=== PATIENT | female | born 1955 | race Caucasian/White ===

== ENCOUNTER 2017-04-06 05:19 | Observation (INO) | payer BC ==
[~2017-04-06] VITALS: Ht 172.7 cm; Wt 114.7 kg
[2017-04-06] VITALS (7 sets, daily range): BP systolic 112–149; BP diastolic 68–83; PULSE 60–67; TEMP 36.6–37.1; O2SAT 93–98; Ht 172.7 cm; Wt 114.7 kg
[~2017-04-06 05:19] MED LIST: ASPI-435 PO; LEVO75TA5 PO; MULT-884 PO
[2017-04-06] MEDS ORDERED: SODIUM CHLORIDE 0.9% 1000ML 1,000 ML IV ONE (06:00)
[2017-04-06] MEDS ORDERED: NITROGLYCERIN OINT 2% 1GM PACKET EXT ONE (06:00)
[2017-04-06 06:13] LABS: POINT OF CARE TROPONIN I < 0.030 ng/ml (0-0.045)
[2017-04-06 06:18] LABS: BASO % 0.5 %; BASO ABS # 0.04 K/uL (0-0.2); COMPLETE YES; EOS % 1.7 %; HEMATOCRIT 39.8 % (37-47); IG% 0.2 %; LYMPH % 19.2 %; LYMPH ABS # 1.69 K/uL (1.2-3.4); MEAN CORPUSCULAR HEMOGLOBIN 30.5 pg (25-34); MEAN CORPUSCULAR HGB CONC 33.9 g/dl (32-36); MEAN PLATELET VOLUME 10.9 fL (7.4-10.4); MONO % 7.1 %; NEUT % 71.3 %; PLATELET COUNT 218 K/uL (130-400); RED BLOOD COUNT 4.42 M/uL (4.2-5.4); WHITE BLOOD COUNT 8.78 K/uL (4.8-10.8)
[2017-04-06] MEDS ORDERED: LEVO150T PO (06:18)
[2017-04-06 06:31] LABS: CALCIUM 8.7 mg/dl (8.5-10.1); CREATININE 0.92 mg/dl (0.60-1.20); PARTIAL THROMBOPLASTIN RATIO 1.1; PROTHROMBIN TIME (PATIENT) 10.6 SECONDS (9.0-12.0)
[2017-04-06 06:33] LABS: URINE APPEARANCE CLEAR (CLEAR); URINE BILIRUBIN NEG (NEG); URINE COLOR YELLOW; URINE NITRITE NEG (NEG); URINE PH 6.5 (4.5-7.5); URINE SPECIFIC GRAVITY 1.025 (1.000-1.030); UROBILINOGEN NEG (NEG); ZZUR CULT IF INDIC CLEAN CATCH NO
[2017-04-06 06:38] LABS: MANUAL MICROSCOPIC REQUIRED? NO; REVIEW REQ? NO
[2017-04-06 06:42] LABS: ALB/GLOB RATIO 0.9 (0.9-2); CKMB/CK RATIO 0.9 (0-3.0); THYROID STIMULATING HORMONE 1.93 uIu/ml (0.300-4.500)
[2017-04-06] MEDS ORDERED: ONDANSETRON INJ 2 MG/ML 2 ML VIAL IV PRN (08:30)
[2017-04-06] MEDS ORDERED: NITROGLYCERIN 0.4 MG SL PER TAB CHARGE SL PRN (08:30)
[2017-04-06] MEDS ORDERED: ACETAMINOPHEN 325 MG TAB PO PRN (08:30)
[2017-04-06] MEDS ORDERED: IV FLUIDS COMPLETED PRN (08:45)
--- NOTE | 2017-04-06 08:46 | DIAGNOSTIC IMAGING REPORT ---
CHEST ONE VIEW PORTABLE CLINICAL HISTORY: 61 years-old Female presenting with Chest pain. TECHNIQUE: Portable upright AP view of the chest was obtained. COMPARISON: None. FINDINGS: Cardiomediastinal silhouette normal allowing for portable AP technique. Minimal linear opacities at the lung bases, left greater than right. No pleural effusion or pneumothorax. Osseous structures normal. Upper abdomen normal. IMPRESSION: 1. Minimal bibasilar atelectasis, left greater than right. Otherwise no acute cardiopulmonary disease. Electronically signed by: Chandana Valdivia M.D. 04/06/2017 8:44 AM Dictated Date/Time: 04/06/2017 8:43 AM
--- NOTE | 2017-04-06 09:18 | History and Physical ---
History & Physical Date & Time of Service: Apr 06, 2017 at 08:42 Chief Complaint: Chest Pressure Primary Care Physician: Umm Reese C.[email or web address] History of Present Illness Source: patient Patient is a 61 Yr female with PMH of Hypothyroidism, Rosacea, Varicose veins and other problems presents with history of sudden onset of back pain radiating to left side of her chest which woke her from sleep at around 3:30am this morning. Patient states chest pain is pressure like 7/10, associated with SOB, diaphoresis, nausea, Left arm tingling which lasted till she arrived to the hospital. Patient received ASA and NTG en route to the hospital. Patient's chest pain is 1/10 currently after receiving NTG. Denies similar pain previously. Denies any history of fever, chills, vomiting, headache, weakness, pedal edema, PND, orthopnea, SOB with exertion, diarrhea. Offers no other relevant history. she takes Aspirin 81mg daily. EKG showed T wave flatting in Inferior leads. Past Medical/Surgical History Medical Problems: (1) Hypothyroidism Status: Chronic PAST Surgical History: Endometrial Ablation Family History Father: CVA, CAD, DM Mother:HTN, HLP, CHF, CAD Social History Smoking Status: Never Smoker Alcohol Use: socially Drug Use: none Multi-Drug Resistant Organisms History of MDRO: No Allergies Coded Allergies: No Known Allergies (Unverified , 04/06/17) Home Medications Scheduled Aspirin (Aspirin 81), 81 MG PO DAILY Levothyroxine Sodium (Synthroid), 150 MCG PO DAILY Review of Systems See HPI for pertinent positives & negatives. A total of 10 systems reviewed and were otherwise negative. Physical Exam Vital Signs Date Time Temp Pulse Resp B/P (MAP) Pulse Ox O2 Delivery O2 Flow Rate FiO2 04/06/17 07:43 74 18 120/73 98 Room Air 04/06/17 05:53 78 04/06/17 05:39 Nasal Cannula 2.0 04/06/17 05:38 89 Room Air 04/06/17 05:34 70 20 93 04/06/17 05:32 108/58 108/58 04/06/17 05:29 59 16 94 Room Air 04/06/17 05:26 114/63 04/06/17 05:25 36.6 73 21 114/63 96 Room Air General Appearance: WD/WN, no apparent distress Head: normocephalic, atraumatic Eyes: normal inspection, PERRL, EOMI, sclerae normal ENT: normal ENT inspection, hearing grossly normal Neck: supple, trachea midline Respiratory/Chest: chest non-tender, lungs clear, normal breath sounds, no respiratory distress Cardiovascular: regular rate, rhythm, no murmur, + pertinent finding (1+ B/L edema) Abdomen/GI: normal bowel sounds, non tender, soft Back: normal inspection Extremities/Musculoskelatal: normal inspection, + pertinent finding (1+ b/l edema) 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, no motor/sensory deficits, alert, normal mood/affect, oriented x 3 Skin: normal color, warm/dry Diagnostics Laboratory Results Results Past 24 Hours Test 04/06/17 05:45 04/06/17 05:54 04/06/17 06:10 04/06/17 08:29 Range/Units White Blood Count 8.78 4.8-10.8 K/uL Red Blood Count 4.42 4.2-5.4 M/uL Hemoglobin 13.5 12.0-16.0 g/dL Hematocrit 39.8 37-47 % Mean Corpuscular Volume 90.0 80-100 fL Mean Corpuscular Hemoglobin 30.5 25-34 pg Mean Corpuscular Hemoglobin Concent 33.9 32-36 g/dl Platelet Count 218 130-400 K/uL Mean Platelet Volume 10.9 7.4-10.4 fL Neutrophils (%) (Auto) 71.3 % Lymphocytes (%) (Auto) 19.2 % Monocytes (%) (Auto) 7.1 % Eosinophils (%) (Auto) 1.7 % Basophils (%) (Auto) 0.5 % Neutrophils # (Auto) 6.26 1.4-6.5 K/uL Lymphocytes # (Auto) 1.69 1.2-3.4 K/uL Monocytes # (Auto) 0.62 0.11-0.59 K/uL Eosinophils # (Auto) 0.15 0-0.5 K/uL Basophils # (Auto) 0.04 0-0.2 K/uL RDW Standard Deviation 43.7 36.4-46.3 fL RDW Coefficient of Variation 13.2 11.5-14.5 % Immature Granulocyte % (Auto) 0.2 % Immature Granulocyte # (Auto) 0.02 0.00-0.02 K/uL Prothrombin Time 10.6 9.0-12.0 SECONDS Prothromb Time International Ratio 1.0 0.9-1.1 Activated Partial Thromboplast Time 28.5 21.0-31.0 SECONDS Partial Thromboplastin Ratio 1.1 Sodium Level 141 136-145 mmol/L Potassium Level 4.0 3.5-5.1 mmol/L Chloride Level 106 98-107 mmol/L Carbon Dioxide Level 26 21-32 mmol/L Anion Gap 9.0 3-11 mmol/L Blood Urea Nitrogen 13 7-18 mg/dl Creatinine 0.92 0.60-1.20 mg/dl Est Creatinine Clear Calc Drug Dose 87.5 ml/min Estimated GFR () 79.0 Estimated GFR (Non- 68.2 BUN/Creatinine Ratio 14.0 10-20 Random Glucose 134 70-99 mg/dl Calcium Level 8.7 8.5-10.1 mg/dl Magnesium Level 2.0 1.8-2.4 mg/dl Total Bilirubin 0.7 0.2-1 mg/dl Aspartate Amino Transf (AST/SGOT) 107 15-37 U/L Alanine Aminotransferase (ALT/SGPT) 61 12-78 U/L Alkaline Phosphatase 110 45-117 U/L Total Creatine Kinase 94 26-192 U/L Creatine Kinase MB 0.8 0.5-3.6 ng/ml Creatine Kinase MB Ratio 0.9 0-3.0 Total Protein 7.1 6.4-8.2 gm/dl Albumin 3.4 3.4-5.0 gm/dl Globulin 3.7 2.5-4.0 gm/dl Albumin/Globulin Ratio 0.9 0.9-2 Lipase 137 73-393 U/L Thyroid Stimulating Hormone (TSH) 1.930 0.300-4.500 uIu/ml Bedside D-Dimer 280 0-450 ng/mlFEU Bedside Troponin I < 0.030 0-0.045 ng/ml Urine Color YELLOW Urine Appearance CLEAR CLEAR Urine pH 6.5 4.5-7.5 Urine Specific [place] 1.025 1.000-1.030 Urine Protein NEG NEG Urine Glucose (UA) NEG NEG Urine Ketones TRACE NEG Urine Occult Blood NEG NEG Urine Nitrite NEG NEG Urine Bilirubin NEG NEG Urine Urobilinogen NEG NEG Urine Leukocyte Esterase NEG NEG CXR normal (on my exam) EKG EKG: NSR, Non specific T wave changes Impression Assessment and Plan Chest Pain: R/O ACS Risk factors: H/O Obesity Initial troponin:Negative EKG shows: T wave changes in Inferior leads CXR: Unremarkable on my exam. Offical report pending Check ECHO Trend serial cardiac enzymes, repeat EKG in AM, fasting lipid panel Continue Aspirin Oxygen PRN Will need Stress test NPO for now Cardiology consulted Hypothyroidism: TSH: normal continue levothyroxine Rosacea: Stable H/O Varicose veins: stable DVT Px: Heparin SQ Code Status: Full Code Disposition: Monitor in Tele VTE Prophylaxis VTE Risk Assessment Done? Y/N: Yes Risk Level: Low
[2017-04-06 09:20] LABS: CHOLESTEROL/HDL RATIO 3.9
[2017-04-06] MEDS ORDERED: PERFLUTREN LIPID MICROSPHERE (DEFINITY) IV ONE (10:33)
[2017-04-06] MEDS: LEVOTHYROXINE 150 MCG TAB PO SCH (10:39)
[2017-04-06] MEDS: SODIUM CHLORIDE 0.9% 1000ML 1,000 ML IV SCH ×2 (10:40→23:51)
[2017-04-06] MEDS ORDERED: INFLUENZA ADMINISTRATION CHARGE ONE (12:00)
[2017-04-06] MEDS ORDERED: INFLUENZA VIRUS QUAD VACCINE 0.5 ML SYR IM. ONE (12:00)
--- NOTE | 2017-04-06 12:02 | ECHOCARDIOGRAM REPORT ---
*NOTICE TO RECEIVING [employer] This information is strictly Confidential and protected under [place] law. [place] law prohibits you from making any further disclosure of this information unless further disclosure is expressly permitted by the written consent of the person to whom it pertains or is authorized by law. A general authorization for the release of medical or other information is not sufficient for this purpose. Hospital accepts no responsibility if the information is made available to any other person, INCLUDING THE PATIENT. Interpretation Summary * Name: KETAN JOSUE Study Date: 04/06/2017 10:00 AM BP: 112/68 mmHg * Patient Location: C.2T\S\S229\S\2 HR: 67 * : 1955 (M/d/yyyy) Gender: Female Height: 68 in * Age: 61 yrs Ethnicity: CA Weight: 252 lb * Ordering Physician: Henry Lujan * Referring Physician: Self, Referred * Performed By: Bailey Adams RDCS * * Reason For Study: CHEST PAIN * BSA: 2.3 m2 * -- Conclusions -- * The left ventricle is normal in size. * There is normal left ventricular wall thickness. * The left ventricular wall motion is normal. * Left ventricular systolic function is normal. * Ejection Fraction = 60-65%. * There is no valvular disease * There is no pericardial effusion. * The aortic root is normal size. Procedure Details * A contrast injection of Definity was performed to improve assessment of LV function. * Contrast was injected into an intravenous site in the right arm. * One vial of Definity ultrasound contrast was diluted in normal saline to a total volume of 10 ml. A total of '2' ml of solution was administered during imaging. * Lot # [id number] of Definity utilized for procedure. * Expiration date APR 24. * The attending nurse who injected the contrast agent was LEXIE REYNOLDS. * A complete two-dimensional transthoracic echocardiogram was performed (2D, M-mode, Doppler and color flow Doppler). Left Ventricle * The left ventricle is normal in size. * There is normal left ventricular wall thickness. * Left ventricular systolic function is normal. * Ejection Fraction = 60-65%. * The left ventricular wall motion is normal. Right Ventricle * The right ventricle is normal in size and function. Atria * The left atrial size is normal. * Right atrial size is normal. * No ASD detected; PFO is not assessed. Mitral Valve * The mitral valve anatomy is normal. * There is no mitral valve stenosis. * There is trace mitral regurgitation. Tricuspid Valve * The tricuspid valve is normal. * There is no tricuspid stenosis. * There is trace tricuspid regurgitation. Aortic Valve * The aortic valve is trileaflet. * No hemodynamically significant valvular aortic stenosis. * No aortic regurgitation is present. Pulmonic Valve * The pulmonic valve is not well visualized. Great Vessels * The aortic root is normal size. Pericardium/Pleural * There is no pericardial effusion. Great Vessels * Normal inferior vena cava diameter and respiratory variation suggests normal central venous pressure. MMode 2D Measurements and Calculations IVSd 1.0 cm IVSs 1.2 cm LVIDd 4.4 cm LVIDs 2.9 cm LVPWd 1.2 cm LVPWs 1.7 cm IVS/LVPW 0.87 FS 33.9 % EDV(Teich) 85.5 ml ESV(Teich) 31.6 ml EF(Teich) 63.0 % EDV(cubed) 82.5 ml ESV(cubed) 23.8 ml EF(cubed) 71.1 % % IVS thick 20.2 % % LVPW thick 42.9 % LV mass(C)d 163.8 grams LV mass(C)dI 72.7 grams/m\S\2 LV mass(C)s 139.9 grams LV mass(C)sI 62.0 grams/m\S\2 SV(Teich) 53.9 ml SI(Teich) 23.9 ml/m\S\2 SV(cubed) 58.7 ml SI(cubed) 26.0 ml/m\S\2 LVAd ap4 34.0 cm\S\2 LVLd ap4 7.7 cm EDV(MOD-sp4) 121.8 ml EDV(sp4-el) 127.9 ml LVAs ap4 19.8 cm\S\2 LVLs ap4 6.4 cm ESV(MOD-sp4) 52.8 ml ESV(sp4-el) 51.9 ml EF(MOD-sp4) 56.6 % EF(sp4-el) 59.4 % LVAd ap2 26.0 cm\S\2 LVLd ap2 7.5 cm EDV(MOD-sp2) 75.8 ml EDV(sp2-el) 76.1 ml LVAs ap2 15.3 cm\S\2 LVLs ap2 5.9 cm ESV(MOD-sp2) 37.5 ml ESV(sp2-el) 33.9 ml EF(MOD-sp2) 50.5 % EF(sp2-el) 55.5 % LVLd %diff -1.89 % EDV(MOD-bp) 97.5 ml LVLs %diff -9.22 % ESV(MOD-bp) 45.7 ml EF(MOD-bp) 53.1 % SV(MOD-sp4) 69.0 ml SI(MOD-sp4) 30.6 ml/m\S\2 SV(MOD-sp2) 38.3 ml SI(MOD-sp2) 17.0 ml/m\S\2 SV(MOD-bp) 51.7 ml SI(MOD-bp) 22.9 ml/m\S\2 SV(sp4-el) 76.0 ml SI(sp4-el) 33.7 ml/m\S\2 SV(sp2-el) 42.2 ml SI(sp2-el) 18.7 ml/m\S\2 Doppler Measurements and Calculations MV E max tien 74.6 cm/sec MV A max tien 73.8 cm/sec MV E/A 1.0 MV dec time 0.22 sec Ao V2 max 162.5 cm/sec Ao max PG 10.6 mmHg Ao max PG (full) 6.9 mmHg LV V1 max PG 3.6 mmHg LV V1 max 95.3 cm/sec
--- NOTE | 2017-04-06 12:34 | CARDIOLOGY CONSULTATION ---
DATE OF CONSULTATION: 04/06/2017 DATE OF CONSULTATION: 04/06/2017 REFERRING PHYSICIAN: Dr. Lujan. PRIMARY CARE PHYSICIAN: Rush Acosta. INDICATIONS: Chest pain. HISTORY OF PRESENT ILLNESS: The patient is a 61-year-old female without prior history of cardiac disease, underlying medical problems include history of chronic hypothyroidism with replacement, peripheral varicose veins, history of mild to moderate hyperlipidemia. The patient notes no prior history of cardiac disease, angina, congestive heart failure, rheumatic fever or scarlet fever. Denies any history of TIA or stroke. Notes no history of past tachypalpitations, syncope or near syncope. Notes no recent change in exercise capacity or decline. The patient presents this admission having awakened from sleep at approximately 3 a.m. with sharp pain beginning in the middle of her back and then radiating across her back to her left shoulder with left arm tingling. Symptoms were associated with mild "clamminess and minimal dyspnea", noted no tachypalpitations with complaints, noted no specific exertional relationship, noted no pleuritic component. She was referred via ambulance, received nitroglycerin in the ambulance and in the ER with symptoms gradually resolving. No acute clinical response. She notes on further review of systems no fevers, chills, sweats. Notes no recent infection. Notes no cough, hoarseness, wheeze or hemoptysis. Notes no melena or hematochezia. Weight has been stable. Notes no sleep disruption. Has chronic superficial varicosities with mild edema which worsens at times when not wearing compression stockings, but notes no clinical decline or change. The patient has been taking medications as prescribed. REVIEW OF SYSTEMS: Otherwise negative. ALLERGIES: Noted to be none. MEDICATIONS: Prior to hospitalization were aspirin 81 mg per day, levothyroxine 150 mcg per day. PAST SURGICAL HISTORY: Notable for uterine ablation, prior history of multiple toe surgeries. FAMILY HISTORY: Notable for heart disease in both mother and father in their latter years. SOCIAL HISTORY: The patient resides in [place]. She is a nonsmoker, rare alcohol user. PHYSICAL EXAMINATION: VITAL SIGNS: Heart rate 67, blood pressure is 112/68 and blood pressure is equal in both arms. HEAD, EYES, EARS, NOSE, AND THROAT: Normocephalic, atraumatic. Nares without discharge. Throat was thin. There is no distinct jugular venous distention. There is no palpable thyromegaly. LUNGS: Clear to auscultation. CARDIOVASCULAR: Regular with normal S1, S2. There is no murmur, gallop or rub. PMI is nondisplaced. ABDOMEN: Soft, nontender. There is no palpable hepatosplenomegaly. There is no hepatojugular reflux. EXTREMITIES: Without cyanosis or clubbing. There is no peripheral edema. There is moderate superficial varicosities. There are intact distal pulses at 2+/4. NEUROLOGIC: The patient is alert, answering questions and is currently pain free at time of exam. LABORATORY DATA: EKG reveals sinus rhythm with nonspecific ST segment changes. T-wave inversion in V3, biphasic T-waves V2. Initial troponin at point of care is less than 0.03. CK and MB fractions are normal. Cholesterol was 200 with an LDL of 130, HDL 51. TSH was normal. Electrolytes were normal. White cell count was 8.7, hemoglobin 13.5. D-dimer was 280. AST is mildly elevated at 107. Echocardiogram by my review reveals normal left ventricular size and function without wall motion abnormality. IMPRESSION: A 61-year-old female without prior history of cardiac disease was awakened from sleep with severe mid back radiating to the shoulder. Symptoms have since waned over gradual period of time without distinct nitroglycerin response. Initial enzymes and EKGs reflect no acute ischemia and an echocardiogram reveals preserved LV function. Laboratory studies are only notable for elevated AST. RECOMMENDATIONS: Findings appear to have some atypical features, although the patient's risk factors, family history and hyperlipidemia noted. Will plan on following serial cardiac enzymes and EKGs. If no change would consider a stress echocardiogram in the a.m. In the interim, given elevated AST, back and midepigastric discomfort, abdominal ultrasound ordered. [facility]
[2017-04-06] MEDS: HEPARIN SOD 5000 UNIT/0.5 ML CARP SQ SCH ×2 (13:45→22:18)
--- NOTE | 2017-04-06 23:02 | DIAGNOSTIC IMAGING REPORT ---
ABDOMEN COMPLETE (US) CLINICAL HISTORY: 61 years-old Female presenting with abd/back pain, elevated ast. TECHNIQUE: Real-time grayscale and limited color Doppler ultrasound imaging of the abdomen was performed. COMPARISON: None. FINDINGS: Pancreas: Visualized portions of the pancreatic head and body normal. Liver: Moderately hyperechogenic parenchyma with partial obscuration of the right hemidiaphragm, likely indicating moderate steatosis. The liver measures 20.1 cm in maximal sagittal dimension. Main portal vein patent with normal directional flow. Biliary: No intrahepatic biliary ductal dilatation. Common bile duct measures up to 5 mm in diameter. Gallbladder: Gallstones and sludge noted. No distention, gallbladder wall thickening, pericholecystic fluid or inflammatory change. Spleen: Normal in echogenicity and size, measuring 10.9 cm in length. Kidneys: Normal in size and echogenicity. Right kidney measures 10.4 cm, and left kidney measures 12.7 cm. No hydronephrosis. Vasculature: Visualized portions of the IVC and abdominal aorta normal. Ascites: None. IMPRESSION: 1. Cholelithiasis without evidence of cholecystitis. 2. Hepatic steatosis and hepatomegaly. The presence of elevated liver enzymes could suggest the presence of steatohepatitis. Electronically signed by: Chandana Valdivia M.D. 04/06/2017 11:00 PM Dictated Date/Time: 04/06/2017 10:58 PM
[2017-04-07 02:55] VITALS: BP 137/81; PULSE 73; TEMP 37; O2SAT 96
--- NOTE | 2017-04-07 05:42 | EMERGENCY ROOM VISIT NOTE ---
History First contact with patient: 05:38 Chief Complaint: CHEST PAIN Stated Complaint: CHEST PAIN Nursing Triage Summary: Went to bed feeling fine, awoke at 0330 with chest pain on left side with tingling to left arm, diaphoresis, nausea. History of Present Illness The patient is a 61 year old female who presents to the Emergency Room with complaints of left sided chest pain radiating into her left sided arm. The patient has associated clamminess and nausea. She states that her symptoms began approximately 2 hours ago. They awoke her from sleep. She is feeling fine when she went to bed, and has not had symptoms like this in the past. The patient has a history of thyroid disease and dyslipidemia. She does not report a history of diabetes or personal cardiac disease. She states there is a very strong family history of cardiac disease, and because of that she contacted EMS. The patient was given 324 mg of aspirin prehospital. She was also given a dose of nitroglycerin prehospital. The nitroglycerin took her pain from a 7/ 10 to a 4/10. The patient has not had recent fever or chills. There is a history of recent travel history when she drove to and from [place] within the past one month. The patient has not had lower extremity pain. She is not complaining of back pain or abdominal pain. The pain does not appear to improve or worsen with activity. Review of Systems More than 10 systems were reviewed and otherwise negative with the exception of history of present illness. Past Medical/Surgical History Medical Problems: (1) Chest pain (2) Hypothyroidism Family History No pertinent family history Social History Smoking Status: Never Smoker Drug Use: none Current/Historical Medications Scheduled Aspirin (Aspirin 81), 81 MG PO DAILY Levothyroxine Sodium (Synthroid), 150 MCG PO DAILY Physical Exam Vital Signs Date Time Temp Pulse Resp B/P (MAP) Pulse Ox O2 Delivery O2 Flow Rate FiO2 04/06/17 07:45 98 Nasal Cannula 2.0 04/06/17 07:43 74 18 120/73 98 Room Air 04/06/17 05:53 78 04/06/17 05:39 Nasal Cannula 2.0 04/06/17 05:38 89 Room Air 04/06/17 05:34 70 20 93 04/06/17 05:32 108/58 108/58 04/06/17 05:29 59 16 94 Room Air 04/06/17 05:26 114/63 9/30/17 05:25 36.6 73 21 114/63 96 Room Air Physical Exam VITALS: Vitals are noted on the nurse's note and reviewed by myself. Vital signs stable. GENERAL: Well-developed, well-nourished, white female, who is in no acute distress and resting comfortably. Patient is cooperative with the examination. HEART: Regular rate and rhythm without murmurs gallops or rubs. LUNGS: Clear to auscultation bilaterally without wheezes, rales or rhonchi. No retractions or accessory muscle use. ABDOMEN: Positive normal bowel sounds x 4. Soft, nontender, without masses or organomegaly. No guarding or rebound tenderness. MUSCULOSKELETAL: No muscle atrophy, erythema, or edema noted. Full range of motion without joint tenderness in all extremities. Medical Decision & Procedures ER Provider Diagnostic Interpretation: CHEST ONE VIEW PORTABLE CLINICAL HISTORY: 61 years-old Female presenting with Chest pain. TECHNIQUE: Portable upright AP view of the chest was obtained. COMPARISON: None. FINDINGS: Cardiomediastinal silhouette normal allowing for portable AP technique. Minimal linear opacities at the lung bases, left greater than right. No pleural effusion or pneumothorax. Osseous structures normal. Upper abdomen normal. IMPRESSION: 1. Minimal bibasilar atelectasis, left greater than right. Otherwise no acute cardiopulmonary disease. Laboratory Results Test 04/06/17 05:45 04/06/17 05:54 04/06/17 06:10 RDW Standard Deviation 43.7 fL (36.4-46.3) RDW Coefficient of Variation 13.2 % (11.5-14.5) White Blood Count 8.78 K/uL (4.8-10.8) Red Blood Count 4.42 M/uL (4.2-5.4) Hemoglobin 13.5 g/dL (12.0-16.0) Hematocrit 39.8 % (37-47) Mean Corpuscular Volume 90.0 fL (80-100) Mean Corpuscular Hemoglobin 30.5 pg (25-34) Mean Corpuscular Hemoglobin Concent 33.9 g/dl (32-36) Platelet Count 218 K/uL (130-400) Mean Platelet Volume 10.9 fL (7.4-10.4) Neutrophils (%) (Auto) 71.3 % Lymphocytes (%) (Auto) 19.2 % Monocytes (%) (Auto) 7.1 % Eosinophils (%) (Auto) 1.7 % Basophils (%) (Auto) 0.5 % Neutrophils # (Auto) 6.26 K/uL (1.4-6.5) Lymphocytes # (Auto) 1.69 K/uL (1.2-3.4) Monocytes # (Auto) 0.62 K/uL (0.11-0.59) Eosinophils # (Auto) 0.15 K/uL (0-0.5) Basophils # (Auto) 0.04 K/uL (0-0.2) Immature Granulocyte % (Auto) 0.2 % Immature Granulocyte # (Auto) 0.02 K/uL (0.00-0.02) Prothrombin Time 10.6 SECONDS (9.0-12.0) Prothromb Time International Ratio 1.0 (0.9-1.1) Activated Partial Thromboplast Time 28.5 SECONDS (21.0-31.0) Partial Thromboplastin Ratio 1.1 Est Creatinine Clear Calc Drug Dose 87.5 ml/min Magnesium Level 2.0 mg/dl (1.8-2.4) Total Bilirubin 0.7 mg/dl (0.2-1) Aspartate Amino Transf (AST/SGOT) 107 U/L (15-37) Alanine Aminotransferase (ALT/SGPT) 61 U/L (12-78) Alkaline Phosphatase 110 U/L (45-117) Total Protein 7.1 gm/dl (6.4-8.2) Albumin 3.4 gm/dl (3.4-5.0) Globulin 3.7 gm/dl (2.5-4.0) Albumin/Globulin Ratio 0.9 (0.9-2) Triglycerides Level 93 mg/dl (0-150) Cholesterol Level 200 mg/dl (0-200) HDL Cholesterol 51 mg/dl LDL Cholesterol, Calculated 130 mg/dl VLDL Cholesterol, Calculated 19 mg/dl Cholesterol/HDL Ratio 3.9 Lipase 137 U/L (73-393) Thyroid Stimulating Hormone (TSH) 1.930 uIu/ml (0.300-4.500) Bedside D-Dimer 280 ng/mlFEU (0-450) Bedside Troponin I < 0.030 ng/ml (0-0.045) Urine Color YELLOW Urine Appearance CLEAR (CLEAR) Urine pH 6.5 (4.5-7.5) Urine Specific Union 1.025 (1.000-1.030) Urine Protein NEG (NEG) Urine Glucose (UA) NEG (NEG) Urine Ketones TRACE (NEG) Urine Occult Blood NEG (NEG) Urine Nitrite NEG (NEG) Urine Bilirubin NEG (NEG) Urine Urobilinogen NEG (NEG) Urine Leukocyte Esterase NEG (NEG) Medications Administered Medications (Trade) Dose Ordered Sig/Silas Route Start Time Stop Time Status Last Admin Dose Admin Sodium Chloride 1,000 ml @ 999 mls/hr Q1H1M ONCE IV 04/06/17 06:00 04/06/17 07:00 DC 04/06/17 06:01 999 MLS/HR Nitroglycerin (Nitroglycerin 2% Oint) 1 inch NOW ONCE EXT 04/06/17 06:00 04/06/17 06:01 DC 04/06/17 05:57 1 INCH ECG Change: Normal sinus rhythm with sinus arrhythmia @61 bpm Nonspecific T wave abnormality Abnormal ECG No previous ECGs available Confirmed by MORRIS MCMAHAN ([id number]) on 04/06/2017 11:59:34 AM ED Course Physical exam and history were performed. Nursing notes, EMR, and Medication List were personally reviewed. Patient appears to have left-sided chest pain for the past 2 hours. Her symptoms improved with nitroglycerin prehospital. EKG was performed and has non -specific T wave abnormality without acute ST elevation or distinct evidence of ischemia. IV access was established and labs were obtained. The patient was placed on a cone trucker. She was given nitro paste here in the department. Chest x-ray was performed. The patient's blood work is as above and was reviewed. She does not have a significant elevated white blood cell count or gross anemia, bandemia, or significant electrolyte imbalance. Lipase and transaminases are nondiagnostic. Troponin and d-dimer 1 are both negative. Chest x-ray does not show acute process. Overall the patient has a very concerning clinical presentation. She did have near complete resolution of her chest pain after being given nitroglycerin here in the department. I have concern that her symptoms represent an atypical anginal pattern. I discussed the case with the on-call hospitalist, who agreed to evaluate the patient here in the department. Please their dictation for further patient course, plan, disposition. The chart was completed utilizing The [employer] Voice Recognition Software. Grammatical errors, random word insertions, pronoun errors, and incomplete sentences are an occasional consequence of this system due to software limitations, ambient noise, and hardware issues. Any formal questions or concerns about the content, text, or information contained within the body of this dictation should be directly addressed to the provider for clarification. . Medical Decision Differential diagnosis includes, but is not limited to: Myocardial infarction, dysrhythmia, pericarditis, pneumothorax, aortic aneurysm/dissection, DVT/PE, anxiety, GERD, PUD, electrolyte imbalance, thyroid disorder, pneumonia, bronchitis, pancreatitis, and others Medication Reconcilliation Current Medication List: was personally reviewed by me Blood Pressure Screening Patient's blood pressure: Normal blood pressure Impression Primary Impression: Left sided chest pain Departure Information Dispostion Still a Patient Condition FAIR Referrals Umm Reese,C.R.N.P. (PCP) Forms Call Back Authorization, HOME CARE DOCUMENTATION FORM, IMPORTANT VISIT INFORMATION Patient Instructions [facility]
[2017-04-07] MEDS: LEVOTHYROXINE 150 MCG TAB PO SCH (06:15)
[2017-04-07] MEDS: HEPARIN SOD 5000 UNIT/0.5 ML CARP SQ SCH (06:15)
[2017-04-07 07:56] LABS: BASO % 0.6 %; BASO ABS # 0.03 K/uL (0-0.2); COMPLETE YES; EOS % 3.2 %; HEMATOCRIT 37.6 % (37-47); IG% 0.2 %; LYMPH % 35.3 %; LYMPH ABS # 1.87 K/uL (1.2-3.4); MEAN CELL VOLUME 90.8 fL (80-100); MEAN CORPUSCULAR HGB CONC 31.9 g/dl (32-36); MEAN PLATELET VOLUME 10.8 fL (7.4-10.4); MONO % 7.6 %; NEUT % 53.1 %; PLATELET COUNT 199 K/uL (130-400); RED BLOOD COUNT 4.14 M/uL (4.2-5.4); WHITE BLOOD COUNT 5.29 K/uL (4.8-10.8)
[2017-04-07 08:01] VITALS: BP 132/83; PULSE 69; TEMP 36.9; O2SAT 96
[2017-04-07 08:36] LABS: BUN/CREATININE RATIO 10.7 (10-20); CALCIUM 8.1 mg/dl (8.5-10.1); CREATININE 0.71 mg/dl (0.60-1.20); POTASSIUM 3.8 mmol/L (3.5-5.1)
[2017-04-07] MEDS ORDERED: ASPIRIN 81 MG ECTAB PO SCH (09:00)
[2017-04-07 11:20] VITALS: BP 138/85; PULSE 83; TEMP 36.9; O2SAT 94
--- NOTE | 2017-04-07 12:12 | Progress Note ---
Internal Med Progress Note Date of Service: Apr 07, 2017. Provider Documentation: SUBJECTIVE: Seen and examined at bedside Had stress test this morning Denies CP/SOB/Dizziness/Abd pain Feels well. Eager to get discharged OBJECTIVE: Vital Signs-as noted below Physical Exam: General Appearance:Obese, no apparent distress Head: normocephalic, Atraumatic Eyes: normal inspection, EOMI, PERRL Neck: supple, Trachea midline Respiratory/Chest: Normal breath sounds, CTA Cardiovascular: S1, S2, No murmur Abdomen/GI:Soft, Non tender, Bowel sounds present Extremities/Musculoskelatal:normal inspection, no edema Neurologic/Psych:AAOX3, grossly no focal neurological deficits Skin: normal color, warm Lab data as noted below. ASSESSMENT & PLAN: Chest Pain: R/O ACS Risk factors: H/O Obesity Cardiac enzymes: Negative EKG shows: Non specific ST-T wave changes CXR: Minimal bibasilar atelectasis, left greater than right. Otherwise no acute cardiopulmonary disease. ECHO:Normal LV wall motion Continue Aspirin Oxygen PRN Appreciate cardiology Input consulted Will start her on Toprol 25mg daily per cardiology recommendations Stress Test: * The stress echocardiogram is negative for inducible ischemia. * Normal resting wall motion and no stress-induced wall motion abnormality. * -- Conclusions -- * The patient exhibited a hypertensive response with stress. * The stress ECG response was normal * Arrhythmia induced during stress: occasional PVC's. Hypothyroidism: TSH: normal continue levothyroxine Elevated AST: Secondary to Hepatic Steatosis Rosacea: Stable H/O Varicose veins: stable DVT Px: Heparin SQ Code Status: Full Code Disposition: Plan to discharge home when stable Follow up with your Primary Care physician Dr. Wang in 1 week as advised Follow up with your Cardiology in 4-6 months as advised Seek immediate medical attention if your symptoms reoccur or worsen PROCEDURES: ECHO: * The left ventricle is normal in size. * There is normal left ventricular wall thickness. * The left ventricular wall motion is normal. * Left ventricular systolic function is normal. * Ejection Fraction = 60-65%. * There is no valvular disease * There is no pericardial effusion. * The aortic root is normal size. ABD USD: 1. Cholelithiasis without evidence of cholecystitis. 2. Hepatic steatosis and hepatomegaly. The presence of elevated liver enzymes could suggest the presence of steatohepatitis. Stress Test: * The stress echocardiogram is negative for inducible ischemia. * Normal resting wall motion and no stress-induced wall motion abnormality. * -- Conclusions -- * The patient exhibited a hypertensive response with stress. * The stress ECG response was normal * Arrhythmia induced during stress: occasional PVC's. Vital Signs: Date Time Temp Pulse Resp B/P (MAP) Pulse Ox O2 Delivery O2 Flow Rate FiO2 04/07/17 11:20 36.9 83 20 138/85 (102) 94 04/07/17 08:01 36.9 69 18 132/83 (99) 96 Room Air 04/07/17 08:00 Room Air 04/07/17 04:00 Room Air 04/07/17 02:55 37.0 73 16 137/81 (99) 96 Room Air 04/07/17 00:00 Room Air 04/06/17 23:16 37.0 66 16 149/83 (105) 98 Room Air 04/06/17 20:00 Room Air 04/06/17 19:04 36.8 62 20 118/76 (90) 96 Room Air 04/06/17 16:00 Room Air 04/06/17 15:04 37.1 66 18 114/68 (83) 93 Room Air 04/06/17 14:00 36.7 60 18 112/69 (83) 95 Room Air Lab Results: Results Past 24 Hours Test 04/06/17 14:13 04/06/17 20:37 04/07/17 02:15 04/07/17 07:10 Range/Units Total Creatine Kinase 77 68 70 26-192 U/L Creatine Kinase MB < 0.5 < 0.5 < 0.5 0.5-3.6 ng/ml Creatine Kinase MB Ratio 0-3.0 Troponin I < 0.015 < 0.015 < 0.015 0-0.045 ng/ml White Blood Count 5.29 4.8-10.8 K/uL Red Blood Count 4.14 4.2-5.4 M/uL Hemoglobin 12.0 12.0-16.0 g/dL Hematocrit 37.6 37-47 % Mean Corpuscular Volume 90.8 80-100 fL Mean Corpuscular Hemoglobin 29.0 25-34 pg Mean Corpuscular Hemoglobin Concent 31.9 32-36 g/dl Platelet Count 199 130-400 K/uL Mean Platelet Volume 10.8 7.4-10.4 fL Neutrophils (%) (Auto) 53.1 % Lymphocytes (%) (Auto) 35.3 % Monocytes (%) (Auto) 7.6 % Eosinophils (%) (Auto) 3.2 % Basophils (%) (Auto) 0.6 % Neutrophils # (Auto) 2.81 1.4-6.5 K/uL Lymphocytes # (Auto) 1.87 1.2-3.4 K/uL Monocytes # (Auto) 0.40 0.11-0.59 K/uL Eosinophils # (Auto) 0.17 0-0.5 K/uL Basophils # (Auto) 0.03 0-0.2 K/uL RDW Standard Deviation 44.8 36.4-46.3 fL RDW Coefficient of Variation 13.5 11.5-14.5 % Immature Granulocyte % (Auto) 0.2 % Immature Granulocyte # (Auto) 0.01 0.00-0.02 K/uL Sodium Level 141 136-145 mmol/L Potassium Level 3.8 3.5-5.1 mmol/L Chloride Level 109 98-107 mmol/L Carbon Dioxide Level 24 21-32 mmol/L Anion Gap 8.0 3-11 mmol/L Blood Urea Nitrogen 8 7-18 mg/dl Creatinine 0.71 0.60-1.20 mg/dl Est Creatinine Clear Calc Drug Dose 113.4 ml/min Estimated GFR () 108.1 Estimated GFR (Non- 93.2 BUN/Creatinine Ratio 10.7 10-20 Random Glucose 111 70-99 mg/dl Calcium Level 8.1 8.5-10.1 mg/dl
--- NOTE | 2017-04-07 12:22 | EXERCISE STRESS ECHO ---
*NOTICE TO RECEIVING [employer] This information is strictly Confidential and protected under [place] law. [place] law prohibits you from making any further disclosure of this information unless further disclosure is expressly permitted by the written consent of the person to whom it pertains or is authorized by law. A general authorization for the release of medical or other information is not sufficient for this purpose. Hospital accepts no responsibility if the information is made available to any other person, INCLUDING THE PATIENT. Interpretation Summary * Name: KETAN JOSUE Study Date: 04/07/2017 09:13 AM BP: 136/84 mmHg * Patient Location: C.2T\S\S229\S\2 HR: 86 * : 1955 (M/d/yyyy) Gender: Female Height: 68 in * Age: 61 yrs Ethnicity: CA Weight: 252 lb * Ordering Physician: Vern Nicolas * Referring Physician: Self, Referred * Performed By: Bailey Adams RDCS * * Reason For Study: CHEST PAIN * BSA: 2.3 m2 * _ workload achieved. * The stress echocardiogram is negative for inducible ischemia. * Normal resting wall motion and no stress-induced wall motion abnormality. * -- Conclusions -- * The patient exhibited a hypertensive response with stress. * The stress ECG response was normal * Arrhythmia induced during stress: occasional PVC's. Procedure Details * A contrast injection of Definity was performed to improve assessment of LV function. * Contrast was injected into an intravenous site in the left arm. * One vial of Definity ultrasound contrast was diluted in normal saline to a total volume of 10 ml. A total of '4' ml of solution was administered during imaging. * Lot # [id number] of Definity utilized for procedure. * Expiration date APR 24. * The attending nurse who injected the contrast agent was MAIA GALLARDO RN. Left Ventricle * The left ventricle is normal in size. * Resting wall motion: Normal. Stress wall motion: Appropriate increase in Left ventricular systolic function and decrease in cavity size. No stress induced segmental wall motion abnormalities. Stress Parameters * Normal baseline electrocardiogram. * Arrhythmia induced during stress: occasional PVC's. * The stress ECG response was normal * The stress portion of this study was personally supervised by the undersigned interpreting physician. * Rest heart rate was '86' BPM. * Rest blood pressure was '136/84' * Maximum heart rate achieved was 160 bpm. * Maximum heart rate was 99 % of maximum age-predicted heart rate. * Maximum blood pressure was '193/67' * Total exercise time was '5:00' * Maximum exercise MET level achieved was '7.00' METS * Maximum treadmill speed was '2.5' miles per hour. * Maximum treadmill elevation was '12.00'% grade. * Exercise was terminated due to 'ACHIEVING TARGET HR' * The patient exhibited a hypertensive response with stress.
[2017-04-07] MEDS ORDERED: METO1TAB31 PO (12:55)
--- NOTE | 2017-04-07 12:57 | Discharge Summary ---
Discharge Summary Date of Service Apr 07, 2017. Discharge Summary Admission Date: Apr 06, 2017 at 08:36 Discharge Date: Apr 07, 2017 Discharge Disposition: Home Principal Diagnosis: Chest Pain Procedures: ECHO: * The left ventricle is normal in size. * There is normal left ventricular wall thickness. * The left ventricular wall motion is normal. * Left ventricular systolic function is normal. * Ejection Fraction = 60-65%. * There is no valvular disease * There is no pericardial effusion. * The aortic root is normal size. ABD USD: 1. Cholelithiasis without evidence of cholecystitis. 2. Hepatic steatosis and hepatomegaly. The presence of elevated liver enzymes could suggest the presence of steatohepatitis. Stress Test: * The stress echocardiogram is negative for inducible ischemia. * Normal resting wall motion and no stress-induced wall motion abnormality. * -- Conclusions -- * The patient exhibited a hypertensive response with stress. * The stress ECG response was normal * Arrhythmia induced during stress: occasional PVC's. Consultations: Cardiology Pending Studies/Follow-Up: Follow up with your Primary Care physician Dr. Wang in 1 week as advised Follow up with your Cardiology in 4-6 months as advised Seek immediate medical attention if your symptoms reoccur or worsen Medication Reconciliation New Medications: Metoprolol Succinate (Toprol Xl) 25 Mg Tab 1 TAB PO DAILY for 30 Days, #30 TAB 1 Refill Continued Medications: Aspirin (Aspirin 81) 81 Mg Tab 81 MG PO DAILY Levothyroxine Sodium (Synthroid) 150 Mcg Tab 150 MCG PO DAILY, TAB Admission Information HPI (per Admitting provider): Patient is a 61 Yr female with PMH of Hypothyroidism, Rosacea, Varicose veins and other problems presents with history of sudden onset of back pain radiating to left side of her chest which woke her from sleep at around 3:30am this morning. Patient states chest pain is pressure like 7/10, associated with SOB, diaphoresis, nausea, Left arm tingling which lasted till she arrived to the hospital. Patient received ASA and NTG en route to the hospital. Patient's chest pain is 1/10 currently after receiving NTG. Denies similar pain previously. Denies any history of fever, chills, vomiting, headache, weakness, pedal edema, PND, orthopnea, SOB with exertion, diarrhea. Offers no other relevant history. she takes Aspirin 81mg daily. EKG showed T wave flatting in Inferior leads. Physical Exam (per Admitting): General Appearance: WD/WN, no apparent distress Head: normocephalic, atraumatic Eyes: normal inspection, PERRL, EOMI, sclerae normal ENT: normal ENT inspection, hearing grossly normal Neck: supple, trachea midline Respiratory/Chest: chest non-tender, lungs clear, normal breath sounds, no respiratory distress Cardiovascular: regular rate, rhythm, no murmur, + pertinent finding (1+ B/ L edema) Abdomen/GI: normal bowel sounds, non tender, soft Back: normal inspection Extremities/Musculoskelatal: normal inspection, + pertinent finding (1+ b/l edema) Neurologic/Psych: visitor services representative II-XII nml as tested, no motor/sensory deficits, alert , normal mood/affect, oriented x 3 Skin: normal color, warm/dry Hospital Course Chest Pain: R/O ACS Risk factors: H/O Obesity Cardiac enzymes: Negative EKG shows: Non specific ST-T wave changes CXR: Minimal bibasilar atelectasis, left greater than right. Otherwise no acute cardiopulmonary disease. ECHO:Normal LV wall motion Continue Aspirin Oxygen PRN Appreciate cardiology Input consulted Will start her on Toprol 25mg daily per cardiology recommendations Stress Test: * The stress echocardiogram is negative for inducible ischemia. * Normal resting wall motion and no stress-induced wall motion abnormality. * -- Conclusions -- * The patient exhibited a hypertensive response with stress. * The stress ECG response was normal * Arrhythmia induced during stress: occasional PVC's. Hypothyroidism: TSH: normal continue levothyroxine Elevated AST: Secondary to Hepatic Steatosis Rosacea: Stable H/O Varicose veins: stable DVT Px: Heparin SQ Code Status: Full Code Disposition: Plan to discharge home when stable Follow up with your Primary Care physician Dr. Wang in 1 week as advised Follow up with your Cardiology in 4-6 months as advised Seek immediate medical attention if your symptoms reoccur or worsen PROCEDURES: ECHO: * The left ventricle is normal in size. * There is normal left ventricular wall thickness. * The left ventricular wall motion is normal. * Left ventricular systolic function is normal. * Ejection Fraction = 60-65%. * There is no valvular disease * There is no pericardial effusion. * The aortic root is normal size. ABD USD: 1. Cholelithiasis without evidence of cholecystitis. 2. Hepatic steatosis and hepatomegaly. The presence of elevated liver enzymes could suggest the presence of steatohepatitis. Stress Test: * The stress echocardiogram is negative for inducible ischemia. * Normal resting wall motion and no stress-induced wall motion abnormality. * -- Conclusions -- * The patient exhibited a hypertensive response with stress. * The stress ECG response was normal * Arrhythmia induced during stress: occasional PVC's. Total time spent on discharge = This includes examination of the patient, discharge planning, medication reconciliation, and communication with other providers. Discharge Instructions Discharge Instructions Date of Service Apr 07, 2017. Admission Reason for Admission: Chest Pain Discharge Discharge Diagnosis / Problem: Chest Pain Discharge Goals Goal(s): Decrease discomfort, Improve function Activity Recommendations Activity Limitations: resume your previous activity Exercise/Sports Limitations: as tolerated . Instructions / Follow-Up Instructions / Follow-Up Follow up with your Primary Care physician Dr. Wang in 1 week as advised Follow up with your Cardiology in 4-6 months as advised Seek immediate medical attention if your symptoms reoccur or worsen Current Hospital Diet Patient's current hospital diet: AHA Diet (Heart Healthy) Discharge Diet Recommended Diet: AHA Diet (Heart Healthy) Pending Studies Studies pending at discharge: no Laboratory Results Lipid Panel Test 04/06/17 05:45 Range/Units Triglycerides Level 93 0-150 mg/dl Cholesterol Level 200 0-200 mg/dl HDL Cholesterol 51 mg/dl Cholesterol/HDL Ratio 3.9 LDL Cholesterol, Calculated 130 mg/dl Medical Emergencies . Who to Call and When: Medical Emergencies: If at any time you feel your situation is an emergency, please call 911 immediately. . Non-Emergent Contact Non-Emergency issues call your: Primary Care Provider, Switch House Operator Call Non-Emergent contact if: you have a fever, your pain is not controlled, your pain is worsening, your pain is unusual for you, your pain is concerning you, you have any medication questions Seek immediate medical attention if your symptoms reoccur or worsen . . "Provider Documentation" section prepared by Henry Lujan. . VTE Core Measure Inpt VTE Proph given/why not?: Unfractionated heparin SQ <Electronically signed by Henry Lujan MD> Signed: 04/07/17 0715 Signed: The status of this report is Signed * If report status is Draft, the document has not been finalized by the responsible provider.
[2017-04-07 13:04] VITALS: BP 138/85; PULSE 83; TEMP 36.9; O2SAT 94
--- NOTE | 2017-04-07 14:22 | PROGRESS NOTE ---
DATE: 04/07/2017 CONSULTATION FOLLOWUP NOTE The patient seen and examined. Chart, medications, telemetry reviewed. SUBJECTIVE: The patient had no further chest pains or discomfort overnight, feels well. Notes no dizziness or lightheadedness. Notes no syncope or near syncope. OBJECTIVE: VITAL SIGNS: Heart rate is 83, blood pressure is 138/85. NECK: Thick. There is no jugular venous distention. There is no carotid bruit. LUNGS: Clear to auscultation. CARDIOVASCULAR: Regular with normal S1, S2. There is no murmur, gallop or rub. ABDOMEN: Soft, nontender. There is no palpable hepatosplenomegaly. There is no hepatojugular reflux. EXTREMITIES: Without cyanosis or clubbing. There is no peripheral edema. Femoral and distal pulses are intact. DATA: Stress echocardiography today, the patient exercised on a Ace protocol for a total of 5 minutes for an estimated MET level of 7 METs, achieving 100% age predicted maximum heart rate. There were no symptoms during the study. There is no stress-induced ischemia by EKG or echocardiographic response. Blood pressure is mildly hypertensive with a rapid heart response to exercise with occasional ventricular ectopic beats noted. No overt ischemia observed. IMPRESSION: A 61-year-old female who presented with chest discomfort awakening her from sleep, though without EKG abnormalities of ischemia. Stress testing now negative for stress induced ischemia. She does carry history of risk factors including family history of heart disease. We will recommend follow up with cardiology in 4-6 months' time. Would recommend beginning beta miguel angel for heart rate and blood pressure control, given findings found on stress testing. If the patient was intolerant, would stop. Would continue to monitor lipids through primary care physician. HUNTER
== END 2017-04-07 13:23 | disposition home or self-care (01) ==
LOC: EDBD 05:19 → C.EDC 05:22 → C.2T 08:36 → ENRESERV 08:45
PROVIDERS: ADMIT Internal Medicine; ATTEND Internal Medicine
DX: R07.9 Chest pain, unspecified (principal); R23.1 Pallor; R11.0 Nausea; I83.90 Asymptomatic varicose veins of unspecified lower extremity; E03.9 Hypothyroidism, unspecified; Z79.82 Long term (current) use of aspirin; Z82.49 Family history of ischemic heart disease and other diseases of the circulatory system; Z83.3 Family history of diabetes mellitus

== ENCOUNTER → 2017-06-04 | Outpatient (CLI) | payer BC ==
[~2017-06-04] MED LIST changes: +LEVO150T PO; -LEVO75TA5 PO; +METO-478 PO; -MULT-884 PO
--- NOTE | 2017-06-04 15:10 | MAMMOGRAPHY REPORT ---
BILATERAL DIGITAL SCREENING MAMMOGRAM TOMOSYNTHESIS WITH CAD: 06/04/2017 CLINICAL HISTORY: Routine screening. Patient has no complaints. TECHNIQUE: Breast tomosynthesis in addition to standard 2D mammography was performed. Current study was also evaluated with a Computer Aided Detection (CAD) system. COMPARISON: Comparison is made to exams dated: 05/29/2016 mammogram, 05/26/2015 mammogram, 4 mammogram, 05/22/2013 mammogram, 05/20/2012 mammogram, and 05/10/2011 mammogram - [facility]. BREAST COMPOSITION: The tissue of both breasts is heterogeneously dense, which may obscure small mas ses. FINDINGS: There are mild vascular calcifications in the breasts. Scattered punctate benign-appearin g macro calcifications are stable compared to prior mammograms. No suspicious mass, architectural dis tortion or cluster of new, suspicious microcalcifications is seen. IMPRESSION: ACR BI-RADS CATEGORY 2: BENIGN There is no mammographic evidence of malignancy. A 1 year screening mammogram is recommended. The pa tient will receive written notification of the results. Approximately 10% of breast cancers are not detected with mammography. A negative mammographic report should not delay biopsy if a clinically suggestive mass is present. Marya Encinas M.D. ay/:06/04/2017 08:54:04 Feed Preparation Operator: Althea WOODS(Ric)(Ivis)(BD), [facility] letter sent: Normal 1/2 BI-RADS Code: ACR BI-RADS Category 2: Benign
== END | disposition home or self-care (01) ==
LOC: C.MAMM 07:46
PROVIDERS: ATTEND Family Medicine
DX: Z12.31 Encounter for screening mammogram for malignant neoplasm of breast (principal)